=== PATIENT | female | born 1990 | race Caucasian/White ===

== ENCOUNTER → 2019-04-14 | Outpatient (REF) | payer OTHER ==
[2019-04-14 19:12] LABS: BASO % 0.2 % (0.0-1.0); EOS # 0.1 10^3/uL (0.0-0.50); EOS % 1.5 % (0.0-3.0); HEMATOCRIT 39.6 % (36.0-47.0); HEMOGLOBIN 13.3 g/dl (12.0-15.5); LYMPH # 2.6 10^3/uL (1.5-4.5); LYMPH % 29.9 % (24.0-44.0); MEAN CORPUSCULAR HEMOGLOBIN 30.6 pg (27.0-33.0); MEAN CORPUSCULAR HGB CONC 33.6 g/dl (32.0-36.5); MONO # 0.5 10^3/uL (0.0-0.8); MONO % 6.2 % (0.0-5.0); NEUTROPHILS # 5.4 10^3/uL (1.8-7.7); PLATELET COUNT, AUTOMATED 289 10^3/uL (150-450); RED BLOOD COUNT 4.35 10^6/uL (4.00-5.40); WHITE BLOOD COUNT 8.7 10^3/uL (4.0-10.0)
== END ==
LOC: M LABSMT 17:23
PROVIDERS: ATTEND Allergy & Immunology Allergy
DX: J45.30 Mild persistent asthma, uncomplicated (principal)

== ENCOUNTER → 2019-12-05 | Outpatient (REF) | payer BC ==
[~2019-12-05] MED LIST: BUPR150T3; CLOB-24; CLOB0.0526; DULO1CAP4 PO; FLUO0.0118; KEFL500C17 PO; LEVOTAB10; LOSA50TA5; MONT10TA4; NALT50TA4 PO; NUVAMIS2; OMEP-221; PROAAER10; SYMB80INH; TIZA4TAB4 PO
== END ==
LOC: M LAB REF 21:47
PROVIDERS: ATTEND Physician Assistant Medical
DX: J10.1 Influenza due to other identified influenza virus with other respiratory manifestations (principal)

== ENCOUNTER 2019-12-06 21:58 | Emergency (ER) | payer BC ==
[~2019-12-06] VITALS: Ht 170.2 cm; Wt 87.6 kg
[2019-12-06] MEDS ORDERED: CLOB-24 (22:07)
[2019-12-06] MEDS ORDERED: BUPR150T3 (22:07)
[2019-12-06] MEDS ORDERED: CLOB0.0526 (22:07)
[2019-12-06] MEDS ORDERED: LEVOTAB10 (22:07)
[2019-12-06] MEDS ORDERED: LOSA50TA5 (22:07)
[2019-12-06] MEDS ORDERED: NUVAMIS2 (22:07)
[2019-12-06] MEDS ORDERED: DULO1CAP4 PO (22:07)
[2019-12-06] MEDS ORDERED: OMEP-221 (22:07)
[2019-12-06] MEDS ORDERED: SYMB80INH (22:07)
[2019-12-06] MEDS ORDERED: NALT50TA4 PO (22:07)
[2019-12-06] MEDS ORDERED: PROAAER10 (22:07)
[2019-12-06] MEDS ORDERED: FLUO0.0118 (22:07)
[2019-12-06] MEDS ORDERED: TIZA4TAB4 PO (22:07)
[2019-12-06] MEDS ORDERED: MONT10TA4 (22:07)
[2019-12-06] MEDS ORDERED: LIDOCAINE 2% MDV 20 ML VIAL SC ONE (23:30)
[2019-12-06] MEDS ORDERED: KEFL500C17 PO (23:56)
[2019-12-07] MEDS ORDERED: CEPHALEXIN 500 MG CAP PO ONE
[2019-12-07 00:12] VITALS: BP 121/80
--- NOTE | 2019-12-07 08:03 | REP ---
Right foot four views : There is no fracture or dislocation. Mineralization and joint spaces are normal. There are no calcifications or foreign bodies. Impression: Negative right foot . Electronically Signed by Cedric Guajardo MD 12/07/2019 07:54 A
== END 2019-12-07 00:13 | disposition home or self-care (01) ==
LOC: M ED 21:58
DX: S90.451A Superficial foreign body, right great toe, initial encounter (principal); W45.8XXA Other foreign body or object entering through skin, initial encounter; Y92.9 Unspecified place or not applicable; Z88.2 Allergy status to sulfonamides; Z79.51 Long term (current) use of inhaled steroids; Z79.899 Other long term (current) drug therapy

== ENCOUNTER → 2021-11-13 | Outpatient (CLI) | payer BC ==
[~2021-11-13] MED LIST changes: +BUPR150T12; -BUPR150T3; -MONT10TA4; +MONT10TA97; -OMEP-221; +OMEP40CA5; +TIZA10TA PO; -TIZA4TAB4 PO
== END ==
LOC: M WHC 11:46
PROVIDERS: ATTEND Physician Assistant
DX: D24.2 Benign neoplasm of left breast (principal)

== ENCOUNTER 2022-06-18 18:30 | Emergency (ER) | payer BC ==
[~2022-06-18] VITALS: Ht 172.7 cm; Wt 99.9 kg
[2022-06-18] MEDS ORDERED: LOSA100T5 PO (18:39)
[2022-06-18] MEDS ORDERED: OTEZ1TAB3 PO (18:41)
[2022-06-18] MEDS ORDERED: NEUR300C PO (18:42)
[2022-06-18] MEDS ORDERED: DERMABOND TOPICAL SKIN ADHESIVE TOP ONE (19:35)
[2022-06-18] MEDS ORDERED: BOOSTRIX/ADACEL VACCINE (DIPHTH/PERTUSS/ACELL/TETANUS) 0.5ML SYR IM ONE (19:35)
[2022-06-18 20:05] VITALS: BP 132/80
== END 2022-06-18 20:09 | disposition home or self-care (01) ==
LOC: M ED 18:30
DX: S81.812A Laceration without foreign body, left lower leg, initial encounter (principal); W26.8XXA Contact with other sharp object(s), not elsewhere classified, initial encounter; Y92.009 Unspecified place in unspecified non-institutional (private) residence as the place of occurrence of the external cause; K21.9 Gastro-esophageal reflux disease without esophagitis; J45.909 Unspecified asthma, uncomplicated; I10 Essential (primary) hypertension; F32.A Depression, unspecified; Z88.2 Allergy status to sulfonamides; Z79.899 Other long term (current) drug therapy; Z23 Encounter for immunization

== ENCOUNTER → 2022-07-12 | Outpatient (CLI) | payer BC ==
[~2022-07-12] MED LIST changes: +LOSA100T5 PO; +NEUR300C PO; +OTEZ1TAB3 PO
== END ==
LOC: M WHC 09:39
PROVIDERS: ATTEND Physician Assistant
DX: D24.2 Benign neoplasm of left breast (principal)

== ENCOUNTER → 2023-02-01 | Outpatient (REF) | payer BC ==
[~2023-02-01] MED LIST changes: +APRE30TA3 PO; -OTEZ1TAB3 PO
== END ==
LOC: M LAB REF 16:27
PROVIDERS: ATTEND Physician Assistant
DX: Z79.899 Other long term (current) drug therapy (principal)

== ENCOUNTER → 2023-03-01 | Outpatient (CLI) | payer BC ==
[~2023-03-01] MED LIST changes: +ETON1VAG7; -NUVAMIS2
[2023-03-01 17:58] LABS: BASO # 0.1 10^3/uL (0.0-0.2); BASO % 0.8 % (0.0-1.0); EOS # 0.1 10^3/uL (0.0-0.5); EOS % 1.5 % (0.0-3.0); HEMATOCRIT 37.7 % (36.0-47.0); HEMOGLOBIN 11.9 g/dl (12.0-15.5); LYMPH # 2.2 10^3/uL (1.5-5.0); LYMPH % 27.6 % (24.0-44.0); MEAN CORPUSCULAR HEMOGLOBIN 27.2 pg (27.0-33.0); MEAN CORPUSCULAR HGB CONC 31.6 g/dl (32.0-36.5); MEAN CORPUSCULAR VOLUME 86.3 fl (80.0-96.0); MONO # 0.6 10^3/uL (0.0-0.8); MONO % 7.1 % (2.0-8.0); NEUTROPHILS % 62.9 % (36.0-66.0); PLATELET COUNT, AUTOMATED 363 10^3/uL (150-450); RED BLOOD COUNT 4.37 10^6/uL (4.00-5.40)
[2023-03-01 18:27] LABS: ALBUMIN 3.5 G/DL (3.2-5.2); ALKALINE PHOSPHATASE 93 U/L (46-116); ALT/SGPT 27 U/L (7.0-40); AST/SGOT < 8 U/L (<34); BILIRUBIN,TOTAL 0.3 MG/DL (0.3-1.2); BLOOD UREA NITROGEN 17 MG/DL (9-23); CALCIUM LEVEL 8.8 MG/DL (8.5-10.1); CARBON DIOXIDE LEVEL 26 MMOL/L (20-31); CHLORIDE LEVEL 106 MMOL/L (98-107); CREATININE FOR GFR 0.92 MG/DL (0.55-1.30); GLOMERULAR FILTRATION RATE > 60.0 (>60); GLUCOSE, FASTING 100 MG/DL (60-100); POTASSIUM SERUM 3.8 MMOL/L (3.5-5.1); SODIUM LEVEL 142 MMOL/L (136-145); TOTAL PROTEIN 6.6 G/DL (5.7-8.2)
== END ==
LOC: M WUC 11:26
PROVIDERS: ATTEND Physician Assistant
DX: L40.8 Other psoriasis (principal)

== ENCOUNTER → 2023-11-01 | Outpatient (REF) | payer BC ==
[2023-11-01 18:42] LABS: HEMATOCRIT 35.6 % (36.0-47.0); HEMOGLOBIN 11.5 g/dl (12.0-15.5); MEAN CORPUSCULAR HEMOGLOBIN 27.8 pg (27.0-33.0); MEAN CORPUSCULAR HGB CONC 32.3 g/dl (32.0-36.5); PLATELET COUNT, AUTOMATED 414 10^3/uL (150-450); RED BLOOD COUNT 4.14 10^6/uL (4.00-5.40); WHITE BLOOD COUNT 9.5 10^3/uL (4.0-10.0)
[2023-11-01 18:56] LABS: ALBUMIN 3.9 G/DL (3.2-5.2); ALKALINE PHOSPHATASE 102 U/L (46-116); ALT/SGPT 35 U/L (7.0-40); AST/SGOT 21 U/L (<34); BILIRUBIN,TOTAL 0.4 MG/DL (0.3-1.2); BLOOD UREA NITROGEN 15 MG/DL (9-23); CARBON DIOXIDE LEVEL 27 MMOL/L (20-31); CHLORIDE LEVEL 103 MMOL/L (98-107); CHOLESTEROL LEVEL 217 MG/DL (<200); CHOLESTEROL RISK RATIO 3.64 (<5); CREATININE FOR GFR 0.78 MG/DL (0.55-1.30); GLOMERULAR FILTRATION RATE > 60.0 (>60); GLUCOSE, FASTING 71 MG/DL (60-100); HDL CHOLESTEROL 59.6 MG/DL (>40); LDL CHOLESTEROL 126.8 MG/DL (<100); NON-HDL-C 157.4 MG/DL; POTASSIUM SERUM 3.6 MMOL/L (3.5-5.1); SODIUM LEVEL 138 MMOL/L (136-145); THYROID STIMULATING HORMONE 2.729 uIU/ML (0.55-4.78); TOTAL PROTEIN 7.2 G/DL (5.7-8.2); TRIGLYCERIDES LEVEL 153 MG/DL (<150)
== END ==
LOC: M LAB REF 17:36
PROVIDERS: ATTEND Physician Assistant
DX: I10 Essential (primary) hypertension (principal)

== ENCOUNTER → 2024-02-28 | Outpatient (REF) | payer BC ==
[2024-03-03 00:07] LABS: CREATININE, URINE 96.3 mg/dL (20.0-300.0)
== END ==
LOC: M LAB REF 16:22
PROVIDERS: ATTEND Physician Assistant
DX: Z79.899 Other long term (current) drug therapy (principal)

== ENCOUNTER → 2024-03-13 | Outpatient (CLI) | payer BC ==
[2024-03-13 14:25] LABS: BASO # 0.1 10^3/uL (0.0-0.2); EOS # 0.6 10^3/uL (0.0-0.5); EOS % 6.1 % (0.0-3.0); HEMATOCRIT 34.5 % (36.0-47.0); HEMOGLOBIN 10.8 g/dl (12.0-15.5); LYMPH % 22.3 % (24.0-44.0); MEAN CORPUSCULAR HEMOGLOBIN 26.2 pg (27.0-33.0); MEAN CORPUSCULAR HGB CONC 31.3 g/dl (32.0-36.5); MEAN CORPUSCULAR VOLUME 83.7 fl (80.0-96.0); MONO # 0.6 10^3/uL (0.0-0.8); MONO % 6.1 % (2.0-8.0); NEUTROPHILS # 5.9 10^3/uL (1.5-8.5); NEUTROPHILS % 64.2 % (36.0-66.0); PLATELET COUNT, AUTOMATED 412 10^3/uL (150-450); RED BLOOD COUNT 4.12 10^6/uL (4.00-5.40); WHITE BLOOD COUNT 9.2 10^3/uL (4.0-10.0)
[2024-03-13 14:50] LABS: ALBUMIN 3.7 G/DL (3.2-5.2); ALKALINE PHOSPHATASE 110 U/L (46-116); ALT/SGPT 46 U/L (7.0-40); AST/SGOT 20 U/L (<34); BILIRUBIN,DIRECT 0.1 MG/DL (<0.4); BILIRUBIN,TOTAL 0.4 MG/DL (0.3-1.2); BLOOD UREA NITROGEN 16 MG/DL (9-23); CARBON DIOXIDE LEVEL 28 MMOL/L (20-31); CHLORIDE LEVEL 106 MMOL/L (98-107); CHOLESTEROL LEVEL 175 MG/DL (<200); CHOLESTEROL RISK RATIO 3.35 (<5); CREATININE FOR GFR 0.77 MG/DL (0.55-1.30); GLOMERULAR FILTRATION RATE > 60.0 (>60); GLUCOSE, FASTING 84 MG/DL (60-100); HDL CHOLESTEROL 52.1 MG/DL (>40); LDL CHOLESTEROL 107.1 MG/DL (<100); NON-HDL-C 122.9 MG/DL; POTASSIUM SERUM 3.7 MMOL/L (3.5-5.1); SODIUM LEVEL 142 MMOL/L (136-145); TRIGLYCERIDES LEVEL 79 MG/DL (<150)
[2024-03-13 14:52] LABS: HEPATITIS B SURFACE ANTIBODY POSITIVE (POSITIVE)
[2024-03-13 15:04] LABS: HEPATITIS B SURFACE ANTIGEN NEGATIVE (NEGATIVE)
[2024-03-13 15:25] LABS: HEPATITIS C VIRUS ABY INDEX 0.04 INDEX (<0.8)
[2024-03-15 00:07] LABS: HEPATITIS B CORE ANTIBODY IGG Negative (Negative); LDL DIRECT 114 mg/dL (0-99)
== END ==
LOC: M WUC 11:17
PROVIDERS: ATTEND Physician Assistant
DX: L40.0 Psoriasis vulgaris (principal)

== ENCOUNTER → 2024-09-25 | Outpatient (CLI) | payer BC ==
[2024-09-25 13:38] LABS: BASO # 0.1 10^3/uL (0.0-0.2); BASO % 0.8 % (0.0-1.0); EOS # 0.3 10^3/uL (0.0-0.5); EOS % 3.6 % (0.0-3.0); HEMATOCRIT 37.3 % (36.0-47.0); HEMOGLOBIN 11.5 g/dl (12.0-15.5); LYMPH # 2.1 10^3/uL (1.5-5.0); LYMPH % 29.5 % (24.0-44.0); MEAN CORPUSCULAR HEMOGLOBIN 24.6 pg (27.0-33.0); MEAN CORPUSCULAR HGB CONC 30.8 g/dl (32.0-36.5); MEAN CORPUSCULAR VOLUME 79.7 fl (80.0-96.0); MONO # 0.5 10^3/uL (0.0-0.8); MONO % 7.5 % (2.0-8.0); NEUTROPHILS # 4.2 10^3/uL (1.5-8.5); NEUTROPHILS % 58.5 % (36.0-66.0); PLATELET COUNT, AUTOMATED 378 10^3/uL (150-450); RED BLOOD COUNT 4.68 10^6/uL (4.00-5.40); WHITE BLOOD COUNT 7.2 10^3/uL (4.0-10.0)
[2024-09-25 14:11] LABS: BLOOD UREA NITROGEN 18 MG/DL (9-23); CALCIUM LEVEL 9.7 MG/DL (8.5-10.1); CARBON DIOXIDE LEVEL 29 MMOL/L (20-31); CHLORIDE LEVEL 105 MMOL/L (98-107); GLOMERULAR FILTRATION RATE > 60.0 (>60); GLUCOSE, FASTING 92 MG/DL (60-100); POTASSIUM SERUM 4.1 MMOL/L (3.5-5.1); SODIUM LEVEL 142 MMOL/L (136-145)
[2024-09-29 14:22] LABS: QuantiFERON-TB Gold Plus NEGATIVE (NEGATIVE)
== END ==
LOC: M PLALAB 11:24
PROVIDERS: ATTEND Physician Assistant
DX: L40.8 Other psoriasis (principal)

== ENCOUNTER → 2025-04-23 | Outpatient (REF) | payer BC ==
[~2025-04-23] MED LIST changes: -FLUO0.0118; +FLUO0.0131
== END ==
LOC: M PLALAB 14:32
PROVIDERS: ATTEND Advanced Practice Midwife
DX: Z53.9 Procedure and treatment not carried out, unspecified reason (principal)

== ENCOUNTER → 2025-05-14 | Outpatient (CLI) | payer BC ==
[2025-05-14 17:39] LABS: PLATELET COUNT, AUTOMATED 334 10^3/uL (150-450)
[2025-05-14 17:53] LABS: ESTIMATED AVERAGE GLUCOSE 97.0 MG/DL (60-110)
[2025-05-14 18:12] LABS: LDH LACTATE DEHYDROGENASE 201 U/L (120-246)
[2025-05-14 18:13] LABS: ALT/SGPT 34 U/L (7.0-40); AST/SGOT 24 U/L (<34); CREATININE FOR GFR 0.67 MG/DL (0.55-1.30); GLOMERULAR FILTRATION RATE > 90.0 (>60)
[2025-05-14 18:14] LABS: TOTAL PROTEIN,RANDOM URINE 6.7 MG/DL (0.0-14.0)
[2025-05-14 18:44] LABS: Trichomonas vaginalis (AMP) NOT DETECTED (NEGATIVE)
[2025-05-14 18:45] LABS: HIV 1&2 SCREEN NEGATIVE (NEGATIVE)
[2025-05-14 18:54] LABS: HEPATITIS C VIRUS ABY INDEX < 0.02 INDEX (<0.8)
[2025-05-14 19:07] LABS: GC DNA AMPLIFICATION NEGATIVE (NEGATIVE)
== END ==
LOC: M PLALAB 16:16
PROVIDERS: ATTEND Advanced Practice Midwife
DX: O10.011 Pre-existing essential hypertension complicating pregnancy, first trimester (principal); Z3A.00 Weeks of gestation of pregnancy not specified; O09.511 Supervision of elderly primigravida, first trimester

== ENCOUNTER → 2025-08-20 | Outpatient (CLI) | payer BC, MEDICAID ==
[2025-08-20 13:31] LABS: PLATELET COUNT, AUTOMATED 310 10^3/uL (150-450)
[2025-08-20 13:37] LABS: GLUCOSE CHALLENGE TEST 1 HOUR 134 MG/DL (LESS THAN 140)
[2025-08-20 14:06] LABS: HIV 1&2 SCREEN NEGATIVE (NEGATIVE)
[2025-08-20 14:14] LABS: HEPATITIS C VIRUS ABY INDEX < 0.02 INDEX (<0.8)
[2025-08-20 14:48] LABS: Trichomonas vaginalis (AMP) NOT DETECTED (NEGATIVE)
[2025-08-20 15:11] LABS: GC DNA AMPLIFICATION NEGATIVE (NEGATIVE)
== END ==
LOC: M PLALAB 09:34
PROVIDERS: ATTEND Student in an Organized Health Care Education/Training Program
DX: Z34.80 Encounter for supervision of other normal pregnancy, unspecified trimester (principal)

== ENCOUNTER → 2025-10-06 | Outpatient (CLI) | payer BC, MEDICAID ==
[~2025-10-06] MED LIST changes: +ASPI81CH33 PO; +BUPR-69 PO; +BUPR15TASR PO; +COLA100C5 PO; +DULO1CAP6 PO; +FAMO10TA50 PO; +GABA-284 PO; +IBUP80TA PO; +LABE100T40 PO; +LABE100T91 PO; +LEVOTAB10 PO; +MAGN400C2 PO; -MONT10TA97; +MONT10TA97 PO; +NIFE1TAB52 PO; -OMEP40CA5; +OMEP40CA5 PO; +OXYC1TAB23 PO; +PRENTAB9 PO; +VALT500T PO
[2025-10-06 12:48] LABS: PLATELET COUNT, AUTOMATED 302 10^3/uL (150-450)
[2025-10-06 13:10] LABS: TOTAL PROTEIN,RANDOM URINE 36.1 MG/DL (0.0-14.0)
[2025-10-06 13:16] LABS: LDH LACTATE DEHYDROGENASE 194 U/L (120-246)
[2025-10-06 13:17] LABS: ALT/SGPT 50 U/L (7.0-40); AST/SGOT 38 U/L (<34); CALCIUM LEVEL 9.3 MG/DL (8.5-10.1); CARBON DIOXIDE LEVEL 24 MMOL/L (20-31); CHLORIDE LEVEL 104 MMOL/L (98-107); CREATININE FOR GFR 0.65 MG/DL (0.55-1.30); GLOMERULAR FILTRATION RATE > 90.0 (>60); POTASSIUM SERUM 4.3 MMOL/L (3.5-5.1); SODIUM LEVEL 138 MMOL/L (136-145)
== END ==
LOC: M PLALAB 10:41
PROVIDERS: ATTEND Student in an Organized Health Care Education/Training Program
DX: O10.019 Pre-existing essential hypertension complicating pregnancy, unspecified trimester (principal); Z3A.00 Weeks of gestation of pregnancy not specified